=== PATIENT | male | born 1960 | race American Indian/Alaskan Native ===

== ENCOUNTER 2021-03-06 10:42 | Outpatient (CLI) | payer OTHER ==
--- NOTE | 2021-03-06 12:35 | XRay Report ---
Bilateral knee radiographs, 2 views of each knee provided. HISTORY: Bilateral knee pain. COMPARISON: None FINDINGS: Right knee: Medial lateral plate and screw fixation constructs and 2 additional interfragmentary scre ws noted within the right proximal tibia. The most inferior fixation screw of the medial fixation loy te and screw construct is fractured. Otherwise, no hardware complication is identified. There is rober te deformity of the proximal right tibia and fibula without significant residual deformity. Heterotop ic ossification noted along the lateral aspect of the fibula. There is moderate to marked osteoarthri tis of the right knee, preferentially involving the medial and patellofemoral compartments. Ossificat ion along the medial collateral ligament is consistent with sequela of prior trauma. No acute fractur e or joint capsular distention. Soft tissues are unremarkable. Left knee: Mild tricompartmental osteoarthritis of the left knee, preferentially involving the medial compartment, which is mildly narrowed. No acute fracture or joint effusion. Soft tissues are unremar kable. IMPRESSION: Right knee: 1. Sequela of prior trauma and surgical fixation with fracturing of the inferior most fixation screw associated with the medial fixation construct. No other hardware complication. 2. Moderate to marked tricompartmental osteoarthritis, preferentially involving the medial and latera l compartment. Other chronic findings, as above. 3. No acute process. Left knee: 1. Mild left knee osteoarthritis, preferentially involving the medial compartment. No acute process. Signer Name: Ananda Luna MD Signed: 03/06/2021 12:31 PM Workstation Name: [id number]
== END 2021-03-06 10:43 | disposition home or self-care (01) ==
LOC: XRAY 10:42
PROVIDERS: ATTEND Internal Medicine
DX: S89.81XS Other specified injuries of right lower leg, sequela (principal); M17.0 Bilateral primary osteoarthritis of knee; X58.XXXS Exposure to other specified factors, sequela